=== PATIENT | male | born 1995 | race Caucasian/White ===

== ENCOUNTER → 2016-10-02 | Outpatient (CLI) | payer BC ==
[~2016-10-02] MED LIST: ABL/5 PO; DIVA500T59 PO; OMEP20CA9 PO; OPTIRAY 320 IV PRN; PROP10TA7 PO; ZNTT/150 PO
--- NOTE | 2016-10-02 09:46 | DIAGNOSTIC IMAGING REPORT ---
CT SOFT TISSUE NECK WITH CT DOSE: 358.92 mGy.cm CLINICAL HISTORY: Neck mass TECHNIQUE: Helical images were acquired during intravenous administration of 117 cc of Optiray 320. COMPARISON STUDY: None. FINDINGS: The visualized portions of the lung apices are unremarkable. No thyroid masses are visualized. No submandibular masses are visualized. At the level of palpable abnormality towards the inferior margin of the left parotid gland there is a 16 mm structure. This likely represents either a lymph node, or parotid lobulation/nodule. It is of the same attenuation as normal parotid gland. There are no pathologically enlarged cervical lymph nodes. No necrotic nodes are evident. There are no fluid collections suspicious for abscess. There is no evidence of airway compromise. No mucosal space masses are visualized. There is polypoid mucosal thickening within the maxillary sinuses. IMPRESSION: At the level of the palpable abnormality at the inferior margin of the left parotid gland there is a 16 mm structure. This likely represents either a parotid lobulation/nodule, or lymph node. It is unclear whether this is a pathologic finding. Clinical follow-up is recommended. If a persistent palpable abnormality is again identified, then fine-needle aspiration biopsy could be obtained in follow-up. Electronically signed by: Elijah Urbano M.D. 10/02/2016 9:44 AM Dictated Date/Time: 10/02/2016 9:35 AM
== END | disposition home or self-care (01) ==
LOC: C.CTS 08:53
PROVIDERS: ATTEND Surgery
DX: R22.1 Localized swelling, mass and lump, neck (principal)

== ENCOUNTER → 2016-10-19 | Outpatient (CLI) | payer BC ==
[~2016-10-19] MED LIST changes: -OPTIRAY 320 IV PRN
--- NOTE | 2016-10-19 14:49 | Discharge Instructions ---
Discharge Instructions Procedure Procedure Date: Oct 19, 2016. Reason for visit: Localized Swelling; Mass Or Lump On Neck. Discharge Discharge Date: Oct 19, 2016. Discharge Diagnosis: s/p left neck mass FNA Instructions Activity Recommendations: No limitations Return to School/Work: no limitations Recommended Home Diet: No Limitations Provider Instructions: ACTIVITY RECOMMENDATIONS: * Rest today. * Resume regular activity in one day. MEDICATIONS: * May take Tylenol or Ibuprofen as needed for pain. DIET: * Resume previous diet. SPECIAL CARE INSTRUCTIONS: Call your doctor if: * Temperature above 101 degrees F. * Pain not relieved by pain medicine ordered. * Increased drainage or redness from incision. * Notify your doctor with any questions or concerns. Call your doctor or go to the nearest Emergency Department if you experience: * Increased chest pain or shortness of breath. FOLLOW UP VISIT: Follow-up with Referring Physician as scheduled. Nicolas Thompson Recommendations: Call your doctor if: * Temperature above 101 degrees * Pain not relieved by pain medicine ordered * There is increased drainage or redness from any incision * You have any unanswered questions or concerns. Your Doctors Instructions noted above were prepared by provider Montana Heaton. Patient Signature Section: Patient Instructions Signature Page Rex Soto Patient (or Guardian) Signature/Date: I have read and understand the instructions given to me by my caregivers. Caregiver/RN/Doctor Signature/Date: The above-named patient and/or guardian has received patient instructions on this date. + Original Patient Signature Page (only) stays with chart. Please make copy for patient.
--- NOTE | 2016-10-19 15:35 | DIAGNOSTIC IMAGING REPORT ---
ULTRASOUND GUIDED FINE NEEDLE ASPIRATION OF LEFT PERIPAROTID MASS CLINICAL HISTORY: Palpable lump. COMPARISON STUDY: CT of the neck October 02, 2016. PROCEDURE: Sonography of the left neck at site of palpable abnormality revealed a 1.7 cm hypoechoic mass with color flow along the posterior aspect of the left parotid gland. This corresponds to the abnormality shown on prior CT and represents the palpable lesion. This was targeted for fine needle aspiration. The procedure, risks and benefits were discussed with the patient. The patient agreed to the procedure and informed written consent was obtained. The procedure was performed by Dr. Heaton following a timeout. Skin of the left neck was prepped and draped in sterile fashion and local anesthesia was achieved with 1% lidocaine. Under direct ultrasound guidance, 2 fine needle aspirations utilizing 25-gauge needles were performed followed by 2 fine needle aspirations utilizing 22-gauge needles (for a total of 4 passes). The samples were deemed preliminarily adequate by pathology. The patient tolerated the procedure well and no immediate complications were evident. IMPRESSION: Ultrasound guided fine needle aspiration of 1.7 cm left periparotid mass. Electronically signed by: Montana Heaton M.D. 10/19/2016 3:34 PM Dictated Date/Time: 10/19/2016 3:30 PM
== END | disposition home or self-care (01) ==
LOC: C.ULTR 13:48
DX: R22.1 Localized swelling, mass and lump, neck (principal)

== ENCOUNTER → 2016-10-31 | Outpatient (CLI) | payer BC ==
--- NOTE | 2016-11-01 07:39 | DIAGNOSTIC IMAGING REPORT ---
PET/CT HEAD AND NECK PROTOCOL CLINICAL HISTORY: Malignant left neck neoplasm. TECHNIQUE: A PET/CT was performed from the skull vertex through the upper thighs following intravenous injection of 15.74 mCi of F 18 FDG IV. The injection was performed at 7:47 AM on November 10, 2016 and imaging began at 8:36 AM on October 31, 2016. Unenhanced CT was performed for attenuation correction purposes and anatomic localization. COMPARISON STUDY: CT of the neck October 02, 2016. FINDINGS: Head and neck: Note is again made of a 1.3 x 1 cm nodule immediately posterior to the left parotid gland shown on axial image 24 of 267. This has mild FDG uptake which is similar to the adjacent parotid tissue. The SUV max for this lesion is 2.1. There is moderate to marked asymmetric radiotracer uptake within the bilateral palatine tonsils. SUV max for the right tonsils is 6.4. SUV max of the left tonsils is 5.3. No corresponding mass is shown on the CT. Epiglottis is normal. No additional abnormalities are identified within the neck. Chest: No abnormal FDG uptake is identified within the chest. The thymus is within normal limits given the patient's age. There are no suspicious pulmonary nodules. No pneumothorax or pleural effusion is present. There is no thoracic lymphadenopathy. Abdomen and Pelvis: No abnormal FDG uptake is identified within the abdomen or pelvis. There is no abdominal or pelvic lymphadenopathy. Musculoskeletal: No suspicious skeletal uptake is identified. IMPRESSION: 1. Minimal FDG uptake within the previously biopsied 1.3 cm left neck mass. The degree of FDG uptake is similar to the adjacent parotid tissue. 2. Moderate to marked FDG uptake within the bilateral palatine tonsils, slightly greater on the right. This is probably physiologic although could be correlated with direct visualization. 3. No evidence of malignancy within the chest, abdomen or pelvis. Electronically signed by: Montana Heaton M.D. 11/01/2016 7:37 AM Dictated Date/Time: 10/31/2016 10:14 AM
== END | disposition home or self-care (01) ==
LOC: C.PET 07:37
DX: C80.1 Malignant (primary) neoplasm, unspecified (principal)

== ENCOUNTER → 2017-05-29 | Outpatient (CLI) | payer BC ==
--- NOTE | 2017-05-29 07:32 | DIAGNOSTIC IMAGING REPORT ---
GALLBLADDER-ABD LIMITED CLINICAL HISTORY: POSTPRANDIAL VOMITING nausea. Vomiting. TECHNIQUE: Ultrasound COMPARISON STUDY: None FINDINGS: Normal gallbladder. No shadowing gallstones. Common bile duct 4 mm. Liver pancreas and right kidney are unremarkable. No evidence for right renal hydronephrosis. IMPRESSION: Normal study The above report was generated using voice recognition software. It may contain grammatical, syntax or spelling errors. Electronically signed by: Cheo Ferguson M.D. 05/29/2017 7:31 AM Dictated Date/Time: 05/29/2017 7:30 AM
[2017-05-29 09:32] LABS: BASO % 0.4 %; BASO ABS # 0.02 K/uL (0-0.2); COMPLETE YES; EOS % 0.6 %; HEMATOCRIT 45.9 % (42-52); IG% 0.4 %; LYMPH % 34.7 %; LYMPH ABS # 1.72 K/uL (1.2-3.4); MEAN CELL VOLUME 87.8 fL (80-100); MEAN CORPUSCULAR HEMOGLOBIN 28.5 pg (25-34); MEAN CORPUSCULAR HGB CONC 32.5 g/dl (32-36); MEAN PLATELET VOLUME 10.6 fL (7.4-10.4); MONO % 10.7 %; NEUT % 53.2 %; PLATELET COUNT 278 K/uL (130-400); RED BLOOD COUNT 5.23 M/uL (4.7-6.1); WHITE BLOOD COUNT 4.95 K/uL (4.8-10.8)
[2017-05-29 09:58] LABS: BLOOD UREA NITROGEN 10 mg/dl (7-18); BUN/CREATININE RATIO 11.2 (10-20); CALCIUM 9.5 mg/dl (8.5-10.1); CARBON DIOXIDE 32 mmol/L (21-32); CHLORIDE 105 mmol/L (98-107); CREATININE 0.92 mg/dl (0.60-1.40); GLUCOSE 90 mg/dl (70-99); POTASSIUM 4.2 mmol/L (3.5-5.1); SODIUM 142 mmol/L (136-145)
[2017-05-29 10:03] LABS: ESTIMATED AVERAGE GLUCOSE 111 mg/dl; HA1C FLAG Normal (Normal)
[2017-05-29 10:18] LABS: ALB/GLOB RATIO 1.2 (0.9-2); ALKALINE PHOSPHATASE 56 U/L (45-117); ALT/SGPT 19 U/L (12-78); AST/SGOT 11 U/L (15-37); CHOLESTEROL 178 mg/dl (0-200); CHOLESTEROL/HDL RATIO 4.6; HDL CHOLESTEROL 39 mg/dl; LDL CHOLESTEROL CALCULATED 113 mg/dl; TRIGLYCERIDES 131 mg/dl (0-150); VERY LOW DENSITY LIPOPROT CALC 26 mg/dl
== END | disposition home or self-care (01) ==
LOC: C.ULTR 06:14
PROVIDERS: ATTEND Physician Assistant
DX: Z51.81 Encounter for therapeutic drug level monitoring (principal); Z79.899 Other long term (current) drug therapy; R11.10 Vomiting, unspecified

== ENCOUNTER → 2017-06-27 | Day surgery (SDC) | payer BC ==
[2017-06-21 13:13] VITALS: Ht 177.8 cm; Wt 77.3 kg
[~2017-06-27] VITALS: Ht 177.8 cm; Wt 77.3 kg
[~2017-06-27] MED LIST changes: +FENTANYL CITRATE INJ 50 MCG/1 ML 2 ML VIAL ONE; +LIDOCAINE HCL 2% 2 ML VIAL (20MG/ML) ONE; +PROPOFOL IV EMULSION 10 MG/ML 20 ML VIAL IV ONE
--- NOTE | 2017-06-27 14:37 | Endo History and Physical ---
History & Physical Date of Service: Jun 27, 2017. Chief Complaint: Vomiting Referring Physician: Ollie History of Present Illness 22 yo CM who presents for EGD secondary to vomiting. Past Surgical History Hx Post-Op Nausea and Vomiting: No Hx Cancer Surgery: Yes (LEFT NECK TUMOR REMOVAL) Hx Orthopedic: Yes (LEFT PATELLA SURGERY) Hx Urinary Tract Surgery: No Family History IBD Social History Smoking Status: Never Smoker Hx Substance Use: No Hx Alcohol Use: Yes (VERY RARELY) Allergies Coded Allergies: Amoxicillin (Verified Allergy, Unknown, RASH, 06/21/17) Current Medications Reported Home Medications Medications Dose Route/Sig Max Daily Dose Days Date Category Zantac (Ranitidine HCl) 150 Mg Tab 150 Mg PO DAILY PRN 06/21/17 Reported Prilosec (Omeprazole) 20 Mg Cap 20 Mg PO DAILY PRN 06/21/17 Reported Inderal (Propranolol HCl) 10 Mg Tab 10 Mg PO BID 06/21/17 Reported Abilify (Aripiprazole) 5 Mg Tab 5 Mg PO QPM 06/21/17 Reported Depakote (Divalproex Sodium) 500 Mg Tab 1 Tab PO BID 30 06/21/17 Reported Vital Signs Weight (Kilograms): 77.27 Height (Feet): 5 Height (Inches): 10 Physical Exam General Appearance: WD/WN, no apparent distress Respiratory/Chest: Auscultation: breath sounds normal Cardiovascular: Heart Auscultation: RRR Abdomen: Bowel Sounds: normal Inspection & Palpation: soft, non-distended, no tenderness, guarding & rebound Assessment and Plan Assessment: 22 yo CM who presents for EGD secondary to vomiting. Plan: Proceed with EGD
--- NOTE | 2017-06-27 15:35 | Discharge Instructions ---
Endoscopy Patient Instructions Date / Procedure(s) Performed Jun 27, 2017. EGD Allergy Information Coded Allergies: Amoxicillin (Verified Allergy, Unknown, RASH, 06/27/17) Discharge Date / Findings Jun 27, 2017. Gastritis s/p biopsies Medication Instructions OK to resume all medications today as prescribed Reported Home Medications Medications Dose Route/Sig Max Daily Dose Days Date Category Zantac (Ranitidine HCl) 150 Mg Tab 150 Mg PO DAILY PRN 06/21/17 Reported Prilosec (Omeprazole) 20 Mg Cap 20 Mg PO DAILY PRN 06/21/17 Reported Inderal (Propranolol HCl) 10 Mg Tab 10 Mg PO BID 06/21/17 Reported Abilify (Aripiprazole) 5 Mg Tab 5 Mg PO QPM 06/21/17 Reported Depakote (Divalproex Sodium) 500 Mg Tab 1 Tab PO BID 30 06/21/17 Reported Provider Instructions Activity Restrictions - No exercising or heavy lifting for 24 hours. - Do not drink alcohol the day of the procedure. - Do not drive a car or operate machinery until the day after the procedure. - Do not make any important decisions or sign important papers in 24 hours after the procedure. Following Day: - Return to full activity which may include returning to work/school. Diet Start your diet with liquids and light foods (jello, soup, juice, toast). Then eat your usual diet if not nauseated. Treatment For Common After Affects For mild abdominal pain, bloating, or excessive gas: - Rest - Eat lightly - Lie on right side Follow-Up Information Follow-up with Dr Lia Levin as scheduled Anesthesia Information What You Should Know You have had a procedure that required some medicine to reduce anxiety and discomfort. This treatment is called moderate sedation. After receiving the treatment, you may be sleepy, but you will be able to breathe on your own. The effects of the treatment may last for several hours. Follow these instructions along with Activity/Diet recommendations noted above: * Do NOT do anything where dizziness or clumsiness would be dangerous. * Rest quietly at home today, then you can be up and about tomorrow. * Have a responsible person stay with you the rest of today. * You may have had an I.V. today. If so, you may take the dressing off later today. Recommendations Call your doctor if: * Trouble breathing * Continuous vomiting for more than 24 hours * Temperature above 101 degrees * Severe abdominal pain or bloating * Pain not relieved by pain medicine ordered * There is increased drainage or redness from any incision * A large amount of rectal bleeding greater than 2-3 tablespoons. (If you had a polyp/s removed or have hemorrhoids, a small amount of blood - from the rectum is to be expected.) * You have any unanswered questions or concerns. IN THE EVENT OF A SERIOUS EMERGENCY, GO TO THE NEAREST EMERGENCY ROOM Your discharge instructions were prepared by provider Daryn Person. Patient Instructions Signature Page Rex Soto Patient (or Guardian) Signature/Date: I have read and understand the instructions given to me by my caregivers. Caregiver/RN/Doctor Signature/Date: The above-named patient and/or guardian has received patient instructions on this date. + Original Patient Signature Page (only) stays with chart. Please make copy for patient.
--- NOTE | 2017-06-27 15:53 | Anesthesiology Progress Note ---
Anesthesia Post Op Note Date & Time Jun 27, 2017 at 15:53 Vital Signs Vital Signs Past 12 Hours Date Time Temp Pulse Resp B/P (MAP) Pulse Ox O2 Delivery O2 Flow Rate FiO2 06/27/17 15:50 69 16 128/63 (84) 96 Room Air 06/27/17 15:35 69 12 119/59 (79) 94 Room Air 06/27/17 14:53 36.7 102 20 147/85 (105) 99 Room Air Notes Mental Status: alert / awake / arousable, participated in evaluation Pt Amnestic to Procedure: Yes Nausea / Vomiting: adequately controlled Pain: adequately controlled Airway Patency, RR, SpO2: stable & adequate BP & HR: stable & adequate Hydration State: stable & adequate Anesthetic Complications: no major complications apparent
[2017-06-27 16:05] VITALS: BP 123/61; PULSE 71; O2SAT 95
--- NOTE | 2017-06-27 16:54 | GI REPORT ---
Procedure Date: 06/27/2017 3:12 PM Procedure: Upper GI endoscopy Indications: Vomiting Medicines: Monitored Anesthesia Care Complications: No immediate complications. Estimated Blood Loss: Estimated blood loss: none. Procedure: Pre-Anesthesia Assessment: - Prior to the procedure, a History and Physical was performed, and patient medications and allergies were reviewed. The patient's tolerance of previous anesthesia was also reviewed. The risks and benefits of the procedure and the sedation options and risks were discussed with the patient. All questions were answered, and informed consent was obtained. Prior Anticoagulants: The patient has taken no previous anticoagulant or antiplatelet agents. ASA Grade Assessment: II - A patient with mild systemic disease. After reviewing the risks and benefits, the patient was deemed in satisfactory condition to undergo the procedure. After obtaining informed consent, the endoscope was passed under direct vision. Throughout the procedure, the patient's blood pressure, pulse, and oxygen saturations were monitored continuously. The Scope was introduced through the mouth, and advanced to the second part of duodenum. The upper GI endoscopy was accomplished without difficulty. The patient tolerated the procedure well. Findings: The esophagus was normal. Localized mild inflammation characterized by erythema was found in the gastric antrum. Biopsies were taken with a cold forceps for histology. The examined duodenum was normal. Impression: - Normal esophagus. - Gastritis. Biopsied. - Normal examined duodenum. Recommendation: - Resume previous diet. - Continue present medications. - Await pathology results. - Return to GI office as previously scheduled. Daryn Person DO 06/27/2017 3:58:37 PM This report has been signed electronically. Note Initiated On: 06/27/2017 3:12 PM I attest to the content of the Intraoperative Record and orders documented therein, exceptions below
== END | disposition home or self-care (01) ==
LOC: C.GI 14:14
PROVIDERS: ATTEND Internal Medicine
DX: K29.50 Unspecified chronic gastritis without bleeding (principal); K31.9 Disease of stomach and duodenum, unspecified; Z79.899 Other long term (current) drug therapy; Z83.79 Family history of other diseases of the digestive system

== ENCOUNTER → 2017-07-10 | Outpatient (CLI) | payer BC ==
[~2017-07-10] MED LIST changes: -FENTANYL CITRATE INJ 50 MCG/1 ML 2 ML VIAL ONE; -LIDOCAINE HCL 2% 2 ML VIAL (20MG/ML) ONE; -PROPOFOL IV EMULSION 10 MG/ML 20 ML VIAL IV ONE
--- NOTE | 2017-07-10 13:17 | DIAGNOSTIC IMAGING REPORT ---
NUCLEAR GASTRIC EMPTYING STUDY: CLINICAL HISTORY: R11.10 Postprandial vomiting COMPARISON STUDY: None TECHNIQUE: Following the oral administration of 1.1 mCi of technetium 99m sulfur colloid in egg sandwich and 8 ounces of water, static abdominal images are performed anteriorly and posteriorly at 0 minutes, 1 hour, 2 hours, and 4 hour time intervals. Gastric emptying was calculated utilizing the geometric mean method. FINDINGS: There is approximately 65 % gastric activity remaining at the 1 hour time interval, 53 % at the 2 hour time interval (normal is less than 60%), and 8 % remaining at the 4 hour time interval (normal is less than 10%). These findings are consistent with a normal study IMPRESSION: Findings are consistent with a normal study Electronically signed by: Elijah Urbano M.D. 07/10/2017 1:16 PM Dictated Date/Time: 07/10/2017 1:15 PM
== END | disposition home or self-care (01) ==
LOC: C.NUCL 08:42
PROVIDERS: ATTEND Physician Assistant
DX: R11.10 Vomiting, unspecified (principal)

== ENCOUNTER → 2017-08-01 | Outpatient (CLI) | payer BC ==
--- NOTE | 2017-08-01 09:50 | DIAGNOSTIC IMAGING REPORT ---
GI W/AIR SMALL BOWEL ROUTINE CLINICAL HISTORY: 22 years-old Male with R11.10. TECHNIQUE: A standard air contrast upper GI series was performed following administration of barium and effervescent crystals. Small bowel follow-through also conducted. Multiple spot fluoroscopic images were obtained and provided for review. COMPARISON STUDY: Gastric emptying study 07/10/2017 FLUOROSCOPY TIME: 1.7 minutes. FINDINGS: The patient swallowed barium without difficulty. No aspiration was definitively visualized. The esophagus distended normally with barium and effervescent crystals. No strictures, mucosal ulcerations, or intraluminal mass lesions were identified involving the esophagus. There was no significant gastroesophageal reflux. Barium was seen to flow freely through the gastroesophageal junction. No active reflux was demonstrated with Valsalva maneuver. Evaluation of the stomach demonstrates no gastric mucosal irregularity or filling defect. The duodenal bulb and sweep appear unremarkable. Planishing Hammer Operator image demonstrates no dilated bowel loops or urolith. Transit to the large bowel occurred at approximately 20 minutes. Subsequently, spot fluoroscopic images of the abdomen were obtained and demonstrate freely movable bowel in all four abdominal quadrants. The terminal ileum appears unremarkable. IMPRESSION: Unremarkable upper GI series and small bowel follow-through. The above report was generated using voice recognition software. It may contain grammatical, syntax or spelling errors. Electronically signed by: Rodrigue David M.D. 08/01/2017 9:48 AM Dictated Date/Time: 08/01/2017 9:45 AM
== END | disposition home or self-care (01) ==
LOC: C.RAD 08:32
PROVIDERS: ATTEND Physician Assistant
DX: R11.10 Vomiting, unspecified (principal)

== ENCOUNTER → 2018-05-08 | Outpatient (CLI) | payer BC ==
[~2018-05-08] MED LIST changes: +RANI150T85 PO; -ZNTT/150 PO
[2018-05-08 15:12] LABS: TOTAL PROTEIN 7.9 gm/dl (6.4-8.2)
== END | disposition home or self-care (01) ==
LOC: C.LAB 14:10
PROVIDERS: ATTEND Physician Assistant
DX: Z79.899 Other long term (current) drug therapy (principal)